=== PATIENT | female | born 1980 | race Caucasian/White ===

== ENCOUNTER 2017-03-30 08:00 | Outpatient (CLI) | payer OTHER ==
[2017-03-30 13:27] LABS: BASOPHILS # (AUTO) 0.1 10^3/uL (0.0-0.1); BASOPHILS % (AUTO) 1.3 %; EOSINOPHILS # (AUTO) 0.2 10^3/uL (0.0-0.7); HGB - HEMOGLOBIN 12.9 g/dL (12.0-16.0); LYMPHOCYTES # (AUTO) 1.5 10^3/uL (1.5-3.5); LYMPHOCYTES % (AUTO) 35.3 %; MEAN CORPUSCULAR HEMOGLOBIN 30.3 pg (27.0-31.0); MEAN CORPUSCULAR HGB CONC 34.8 g/dL (32.0-36.0); MEAN CORPUSCULAR VOLUME 87.2 fL (81.0-99.0); MEAN PLATELET VOLUME 9.8 fL (7.9-10.8); MONOCYTES # (AUTO) 0.4 10^3/uL (0.0-1.0); MONOCYTES % (AUTO) 10.4 %; RED BLOOD COUNT 4.25 10^6/uL (4.20-5.40); RED CELL DISTRIBUTION WIDTH 13.2 % (12.0-15.0); UNCORRECTED WHITE BLOOD COUNT 4.2 x10^3/uL; WHITE BLOOD COUNT 4.2 x10^3/uL (4.8-10.8)
== END 2017-03-30 08:01 | disposition home or self-care (01) ==
LOC: LAB.R 08:00
PROVIDERS: ATTEND Nurse Practitioner Primary Care
DX: D50.9 Iron deficiency anemia, unspecified (principal)
CPT/HCPCS: 82728; 85025

== ENCOUNTER 2018-02-05 13:10 | Outpatient (CLI) | payer OTHER | END 2018-02-05 13:11 | disposition home or self-care (01) | LOC: LAB 13:10 | PROVIDERS: ATTEND Surgery | DX: J02.9 Acute pharyngitis, unspecified (principal) | CPT/HCPCS: 87070; 87430 ==

== ENCOUNTER 2019-11-16 10:09 | Outpatient (CLI) | payer OTHER ==
--- NOTE | 2019-11-16 12:26 | Mammography Report ---
Reason: ROUTINE MAMMO Procedure Date: 11/16/2019 Accession Number: [id number] / [id number] Procedure: THELMA - Screening Mammo w/Juan CPT Code: Final Report FULL RESULT: EXAM: Screening Mammo w/Juan DATE: 11/16/2019 10:44 AM CLINICAL HISTORY: The patient is an asymptomatic 39-year-old female presenting for a baseline study. Late childbearing. Second degree family history breast cancer. TECHNIQUE: (B) - Bilateral CC, laterally exaggerated CC, MLO views were obtained. COMPARISON: None PARENCHYMAL PATTERN: (VD) - The breasts demonstrate extremely dense parenchyma bilaterally, limiting the sensitivity of mammography. FINDINGS: RIGHT BREAST: There is a partially obscured isodense mass in the 8 -9:00 mid-posterior position approximately 6 cm from the nipple; reference juan slices 28 (CC) and 26 (MLO). Recommend targeted ultrasound - given baseline study LEFT BREAST: There is a partially obscured isodense mass in the 10:00 anterior position approximately 3 cm from the nipple; reference juan slices 36 (CC) and 55 (MLO). Recommend targeted ultrasound - given baseline study. IMPRESSION: Incomplete examination. BI-RADS category 0. RECOMMENDATION: (ADDUS) - Targeted ultrasound recommended. BI-RADS CATEGORY: (0) - Incomplete Examination - need additional evaluation. STANDARD QUALIFYING STATEMENTS: A negative or benign imaging report should not preclude biopsy if clinically suspicious findings are present. Dense breasts may obscure an underlying neoplasm. This examination was reviewed with the aid of 3D breast imaging (tomosynthesis).
== END 2019-11-16 10:10 | disposition home or self-care (01) ==
LOC: DI 10:09
PROVIDERS: ATTEND Nurse Practitioner
DX: Z12.31 Encounter for screening mammogram for malignant neoplasm of breast (principal); R92.8 Other abnormal and inconclusive findings on diagnostic imaging of breast; Z80.3 Family history of malignant neoplasm of breast
CPT/HCPCS: 77063; 77067

== ENCOUNTER 2019-11-17 09:03 | Outpatient (CLI) | payer OTHER ==
[2019-11-17 09:22] LABS: BASOPHILS # (AUTO) 0.1 10^3/uL (0.0-0.1); BASOPHILS % (AUTO) 1.2 %; EOSINOPHILS # (AUTO) 0.2 10^3/uL (0.0-0.7); EOSINOPHILS % (AUTO) 3.3 %; HGB - HEMOGLOBIN 14.7 g/dL (12.0-16.0); LYMPHOCYTES # (AUTO) 1.7 10^3/uL (1.5-3.5); LYMPHOCYTES % (AUTO) 33.7 %; MEAN CORPUSCULAR HEMOGLOBIN 30.1 pg (27.0-31.0); MEAN CORPUSCULAR HGB CONC 33.8 g/dL (32.0-36.0); MEAN PLATELET VOLUME 10.5 fL (7.9-10.8); MONOCYTES # (AUTO) 0.6 10^3/uL (0.0-1.0); MONOCYTES % (AUTO) 11.9 %; NEUTROPHILS # (AUTO) 2.6 10^3/uL (1.5-6.6); NEUTROPHILS % (AUTO) 49.7 %; PLT - PLATELET COUNT 245 10^3/uL (130-450); RED BLOOD COUNT 4.89 10^6/uL (4.20-5.40); RED CELL DISTRIBUTION WIDTH 12.5 % (12.0-15.0); WHITE BLOOD COUNT 5.1 x10^3/uL (4.8-10.8)
[2019-11-17 09:36] LABS: ALBUMIN 4.6 g/dL (3.2-5.5); ALBUMIN/GLOBULIN RATIO 1.6 (1.0-2.2); ALKALINE PHOSPHATASE 48 IU/L (42-121); ALT ALANINE AMINOTRANSFERASE 25 IU/L (10-60); AST ASPARTATE AMINOTRANSFERASE 20 IU/L (10-42); BILIRUBIN,TOTAL 0.7 mg/dL (0.2-1.0); BUN - BLOOD UREA NITROGEN 16 mg/dL (6-20); CALCIUM 9.2 mg/dL (8.5-10.3); CARBON DIOXIDE - CO2 25 mmol/L (21-32); CHLORIDE 104 mmol/L (101-111); CHOL/HDL RATIO 4.8 (<4.4); CHOLESTEROL 176 mg/dL; CREATININE 0.8 mg/dL (0.4-1.0); GFR - MDRD 79 (>89); GLUCOSE 108 mg/dL (70-100); HDL CHOLESTEROL 37 mg/dL; LDL CHOLESTEROL,CALCULATED 124 mg/dL; LDL/HDL RATIO 3.4 (<4.4); SODIUM 138 mmol/L (135-145); TOTAL PROTEIN 7.5 g/dL (6.7-8.2); VLDL CHOLESTEROL 15 mg/dL
== END 2019-11-17 09:04 | disposition home or self-care (01) ==
LOC: LAB 09:03
PROVIDERS: ATTEND Nurse Practitioner
DX: Z13.220 Encounter for screening for lipoid disorders (principal); Z13.29 Encounter for screening for other suspected endocrine disorder; N92.0 Excessive and frequent menstruation with regular cycle; F32.9 Major depressive disorder, single episode, unspecified; J45.909 Unspecified asthma, uncomplicated
CPT/HCPCS: 36415; 80053; 80061; 83721; 84443; 85025

== ENCOUNTER 2019-11-23 11:19 | Outpatient (CLI) | payer OTHER ==
--- NOTE | 2019-11-23 16:21 | Ultrasound Report ---
Reason: ABNORMAL MAMMO Procedure Date: 11/23/2019 Accession Number: [id number] / [id number] Procedure: US - Breast Unilateral Limited CPT Code: Final Report FULL RESULT: EXAM: Breast Unilateral Limited, Breast Unilateral Limited DATE: 11/23/2019 12:12 PM CLINICAL HISTORY: ABN MAMMO COMPARISON: None. TECHNIQUE: Targeted ultrasound was performed of the left breast in the area of clinical concern at 10 o'clock and 2 cm distance from the nipple. Color Doppler was employed as appropriate. Targeted ultrasound was performed of the right breast in the area of clinical concern at 9 o'clock and 6 cm distance from the nipple. Color Doppler was employed as appropriate. FINDINGS: Right breast: A simple cyst measuring 0.7 x 0.4 x 0.7 cm is identified with an additional thinly septated bilobed appearing cyst without solid component which is wider than tall and measures 1.6 x 1.2 x 0.8 cm, both appear typically benign and correspond to the mammogram. Left breast: A wider than tall simple cyst measuring 2.5 x 1.2 x 2.1 cm corresponds in size and location to the mammographic finding, appearance is typically benign. No suspicious findings are seen on either side. IMPRESSION: Benign findings RECOMMENDATION: Recommend routine annual Screening mammography unless otherwise clinically indicated. BIRADS CATEGORY 2: Benign findings RADIA
--- NOTE | 2019-11-23 16:21 | Ultrasound Report ---
Reason: ABN MAMMO Procedure Date: 11/23/2019 Accession Number: [id number] / [id number] Procedure: US - Breast Unilateral Limited CPT Code: Final Report FULL RESULT: EXAM: Breast Unilateral Limited, Breast Unilateral Limited DATE: 11/23/2019 12:12 PM CLINICAL HISTORY: ABN MAMMO COMPARISON: None. TECHNIQUE: Targeted ultrasound was performed of the left breast in the area of clinical concern at 10 o'clock and 2 cm distance from the nipple. Color Doppler was employed as appropriate. Targeted ultrasound was performed of the right breast in the area of clinical concern at 9 o'clock and 6 cm distance from the nipple. Color Doppler was employed as appropriate. FINDINGS: Right breast: A simple cyst measuring 0.7 x 0.4 x 0.7 cm is identified with an additional thinly septated bilobed appearing cyst without solid component which is wider than tall and measures 1.6 x 1.2 x 0.8 cm, both appear typically benign and correspond to the mammogram. Left breast: A wider than tall simple cyst measuring 2.5 x 1.2 x 2.1 cm corresponds in size and location to the mammographic finding, appearance is typically benign. No suspicious findings are seen on either side. IMPRESSION: Benign findings RECOMMENDATION: Recommend routine annual Screening mammography unless otherwise clinically indicated. BIRADS CATEGORY 2: Benign findings RADIA
== END 2019-11-23 11:20 | disposition home or self-care (01) ==
LOC: DI 11:19
PROVIDERS: ATTEND Nurse Practitioner
DX: N60.01 Solitary cyst of right breast (principal); N60.02 Solitary cyst of left breast
CPT/HCPCS: 76642

== ENCOUNTER 2024-04-11 06:31 | Day surgery (SDC) | payer BC, OTHER ==
[2024-04-11] MEDS: LACTATED RINGERS 1,000 ML IV ONE ×2 (06:50→08:11)
[2024-04-11 07:18] LABS: HCG UR QUAL NEGATIVE
--- NOTE | 2024-04-11 07:24 | ANESTHESIA ---
Pre-Anesthesia VS, & Labs - Diagnosis screening - Procedure colonoscopy Vital Signs: Temp Pulse Resp BP Pulse Ox O2 Flow Rate 36.3 C L 76 16 119/87 H 95 04/11/24 06:30 04/11/24 06:30 04/11/24 06:30 04/11/24 06:30 04/11/24 06:30 Height: 5 ft 7 in Weight (kg): 81.6 kg Body Mass Index: 28.1 BMI Classification: Overweight - NPO >8 hours - Is Patient ?: No Home Medications and Allergies Home Medications: Ambulatory Orders Aspirin EC [Ecotrin] 81 mg PO DAILY 04/08/24 Dextroamphetamine/Amphetamine [Adderall Xr 10 mg Capsule] 10 mg PO DAILY PRN 04/08/24 FLUoxetine [PROzac] 10 mg PO DAILY 04/08/24 Famotidine [Acid Dental Sales Representative] 20 mg PO DAILY 04/08/24 Magnesium Glycinate 100 mg PO QPM 04/08/24 Rosuvastatin Calcium 40 mg PO DAILY 04/08/24 Ubiquinol [Coqmax Ubiquinol] 100 mg PO DAILY 04/08/24 Aspirin EC [Ecotrin] 81 mg PO DAILY 04/08/24 Dextroamphetamine/Amphetamine [Adderall Xr 10 mg Capsule] 10 mg PO DAILY PRN 04/08/24 FLUoxetine [PROzac] 10 mg PO DAILY 04/08/24 Famotidine [Acid Dental Sales Representative] 20 mg PO DAILY 04/08/24 Magnesium Glycinate 100 mg PO QPM 04/08/24 Rosuvastatin Calcium 40 mg PO DAILY 04/08/24 Ubiquinol [Coqmax Ubiquinol] 100 mg PO DAILY 04/08/24 Allergies/Adverse Reactions: Allergies Allergy/AdvReac Type Severity Reaction Status Date / Time nitrofurantoin Allergy Hives Verified 04/08/24 14:18 macrocrystalline * [From Macrobid] Anes History & Medical History - Anesthetic History Anesthesia Complications: reports: No previous complications Family history of Anesthesia Complications: Denies Family history of Malignant Hyperthermia: Denies - Medical History Cardiovascular: reports: High cholesterol Pulmonary: reports: None Gastrointestinal: reports: GERD Urinary: reports: None Neuro: reports: None Musculoskeletal: reports: None Endocrine/Autoimmune: reports: None Skin: reports: None Smoking Status: Never smoker Psychosocial: reports: No issues indicated History of Cancer?: No - Surgical History General: reports: Cholecystectomy Exam General: Alert, Oriented x3, Cooperative Dental: WNL Mouth Openin Fingerbreadth Neck Mobility: Normal Mallampati classification: II Thyromental Distance: 4-6 cm Respiratory: Lungs clear Cardiovascular: Regular rate Plan Anesthesia Type: General, Total IV Consent for Procedure(s) Verified and Reviewed: Yes Code Status: Attempt Resuscitation ASA classification: 2-Mild systemic disease Is this case an emergency?: No
[2024-04-11] MEDS ORDERED: LIDOCAINE-MPF 2% 5 ML VIAL ONE (07:34)
[2024-04-11] MEDS ORDERED: MIDAZOLAM 2 MG/2 ML VIAL ONE (07:34)
[2024-04-11] MEDS ORDERED: ONDANSETRON 4 MG/2 ML VIAL ONE (07:34)
[2024-04-11] MEDS ORDERED: PROPOFOL 500 MG/50 ML 500 MG/50 ML VIAL ONE (07:34)
[2024-04-11 08:41] VITALS: BP 113/82; O2SAT 100
--- NOTE | 2024-04-11 10:17 | ANESTHESIA POST OP EVALUATION ---
Anesthesia Post Eval - Post Anesthesia Eval Vitals: Last Vital Signs Temp 36.2 C L 04/11/24 08:11 Pulse 72 04/11/24 08:36 Resp 14 04/11/24 08:36 BP 113/82 H 04/11/24 08:36 Pulse Ox 100 04/11/24 08:36 O2 Flow Rate CV Function Including HR & BP: Stable Pain Control: Satisfactory Nausea & Vomiting: Negative Mental Status: Baseline Respiratory Status: Airway Patent Hydration Status: Satisfactory Anesthesia Complications: None
== END 2024-04-11 06:32 | disposition home or self-care (01) ==
LOC: SDS 06:31
PROVIDERS: ATTEND Surgery
DX: Z12.11 Encounter for screening for malignant neoplasm of colon (principal); K57.30 Diverticulosis of large intestine without perforation or abscess without bleeding; Z32.02 Encounter for pregnancy test, result negative
CPT/HCPCS: 45378; 81025; J7120